=== PATIENT | male | born 1945 | race Caucasian/White ===

== ENCOUNTER 2016-02-26 14:00 | Emergency (ER) | payer OTHER ==
[~2016-02-26] VITALS: Ht 175.3 cm; Wt 79.4 kg
[~2016-02-26 14:00] MED LIST: ATORVASTATIN CA10 MG PO; COZAAR 50MG TAB50 MG PO; ESGIC PO; IMITREX50 MG PO; LEVOTHYROXINE0.05 MG PO; TAMSULOSIN HYD0.4 MG PO; ZETIA10 MG PO
--- NOTE | 2016-02-26 15:12 | CT SCAN REPORT ---
EXAMINATION: CT HEAD WITHOUT CONTRAST CLINICAL INFORMATION: Head pain status post fall. COMPARISON: None. TECHNIQUE: Contiguous axial imaging was performed from the skull base to vertex without intravenous administration of contrast. DLP: 601 mGy-cm. FINDINGS: There is no evidence of acute intracranial hemorrhage or territorial infarction. No abnormal mass effect or midline shift is seen. Walker to white matter differentiation is well preserved. No extra-axial fluid collections are identified. The ventricles are normal in size. There is no significant abnormal attenuation within the brain parenchyma. The osseous structures and soft tissues are normal. The mastoid air cells and visualized portions of the paranasal sinuses are well aerated. IMPRESSION: No acute intracranial pathology.
--- NOTE | 2016-02-26 15:34 | ED HEAD/FACIAL INJ COMPLAINT ---
History of Present Illness General Chief Complaint: Fall Stated Complaint: FALL/HIT BACK OF HEAD Source: patient Exam Limitations: no limitations Vital Signs & Intake/Output Vital Signs & Intake/Output Vital Signs Date Time Temp Pulse Resp B/P Pulse O2 O2 Flow FiO2 Ox Delivery Rate 02/25 1543 97.4 55 16 157/96 96 Room Air 02/25 1414 97.6 58 20 142/87 97 Room Air Allergies Coded Allergies: codeine (Intermediate, MIGRAINES 02/26/16) Penicillins (Mild, RASH 02/26/16) iodine (R/T HX GRAVES DISEASE 02/26/16) Reconcile Medications Acetaminophen/Butalbital/Caf (Esgic 325 MG-50 MG-40 MG) 1 CAP CAP 1 CAP PO PRN HEADACHE (Reported) Atorvastatin Calcium (Lipitor) 10 MG TAB 1 TAB PO DAILY CHOLESTEROL (Reported ) Ezetimibe (Zetia) 10 MG TAB 1 TAB PO DAILY CHOLESTEROL (Reported) Levothyroxine Sodium 0.05 MG TAB 0.05 MG PO DAILY AC THYROID (Reported) Losartan (Cozaar) 50 MG TAB 1 TAB PO DAILY HEART (Reported) Sumatriptan Succinate (Imitrex) 50 MG TAB 1 TAB PO AD HEADACHE (Reported) TAMSULOSIN HCL (Tamsulosin Hydrochloride) 0.4 MG CAP 1 CAP PO DAILY PROSTATE (Reported) Triage Note: TRIAGE: PT TO ER C/C PAIN TO HEAD S/P FALL LAST NIGHT. STATES "I'M IN [place] [employer] AND MY FEET JUST WENT OUT FROM UNDER ME. FELL BACKWARDS AND HEAD HIT ON ICE." -LOC. HAS TAKEN ADVIL X 2 DOSES (LAST DOSE THIS MORNING) WITH SOME RELIEF NOTED. -DIZZY, -BLURRY VISION. STATES "I FEEL JUST A LITTLE FUZZY". Triage Nurses Notes Reviewed? yes HPI: 71-year-old male here with complaints of mild headache posterior aspect after he slipped on the ice last night while curling. He states he had a flash of light really after the fall when he slipped backwards and struck the back of his head on the ice he did not lose consciousness, he said a mild head pain in that area since the fall. He denies any nausea or vomiting, no confusion no loss of memory and amnesia no coordination trouble no blood thinners no history of significant head injuries. (ABENA ARIAS,OMAR) Past History Travel History Traveled to [place] past 21 day No Medical History Any Pertinent Medical History? see below for history Neurological: BENIGN ESSENTIAL TREMORS EENT: NONE Cardiovascular: hypertension, hyperlipidemia Respiratory: NONE Gastrointestinal: diverticulitis Hepatic: NONE Renal: nephrolithiasis, bph Musculoskeletal: NONE Psychiatric: NONE Endocrine: GRAVES DISEASE Blood Disorders: NONE Cancer(s): NONE DETENTION SERGEANT/Reproductive: NONE Surgical History Surgical History: hernia repair-inguinal Psychosocial History What is your primary language Trinidadian Tobacco Use: Quit >30 days ago ETOH Use: occasional use Illicit Drug Use: marijuana Family History Hx Contributory? No (OMAR LUU) Review of Systems Review of Systems Constitutional: Reports: see HPI. EENTM: Reports: no symptoms. Respiratory: Reports: no symptoms. Cardiovascular: Reports: no symptoms. GI: Reports: no symptoms. Genitourinary: Reports: no symptoms. Musculoskeletal: Reports: no symptoms. Skin: Reports: no symptoms. Hematologic/Endocrine: Reports: no symptoms. Immunologic/Allergic: Reports: no symptoms. All Other Systems: Reviewed and Negative (OMAR LUU) Physical Exam Physical Exam General Appearance: well developed/nourished Cranial Nerves: normal hearing, normal speech, PERRL Comments: Well-developed well-nourished person in no acute distress HEENT: Normal EENT exam, extraocular motion intact, no nystagmus. Pupils equally round and reactive to light. Nose is atraumatic. External auditory canal and Tympanic membranes clear. Pharynx normal. No swelling or edema. Neck: Supple, no lymphadenopathy, normal range of motion without pain or tenderness Back: Nontender, no CVA tenderness. Full range of motion Respiratory: No respiratory distress Extremities: No edema, full range of motion Neuro: Alert and oriented x3, cranial nerves II through XII grossly intact, coordination intact, gait is normal Psych: Mood affect normal, normal memory normal judgment. Skin: Warm and dry, no rash on exposed skin (OMAR LUU) Progress Differential Diagnosis: corneal abrasion, c-spine injury, facial fracture, globe injury, ICH, orbit fracture, skull fracture Plan of Care: CT scan unremarkable, patient is largely asymptomatic, no confusion no vomiting no severe headaches. He'll return with any concerning symptoms of such. Diagnostic Imaging: Viewed by Me: CT Scan. Discussed w/RAD: CT Scan. Radiology Impression: PATIENT: LIOR CARMEN PRESENT AGE: 71 PATIENT ACCOUNT NO: [id number] : 45 LOCATION: [facility] ORDERING PHYSICIAN: KELLI JEAN MD SERVICE DATE: 02/26/16 EXAM TYPE: CAT - CT HEAD WO IV CONTRAST EXAMINATION: CT HEAD WITHOUT CONTRAST CLINICAL INFORMATION: Head pain status post fall. COMPARISON: None. TECHNIQUE: Contiguous axial imaging was performed from the skull base to vertex without intravenous administration of contrast. DLP: 601 mGy-cm. FINDINGS: There is no evidence of acute intracranial hemorrhage or territorial infarction. No abnormal mass effect or midline shift is seen. Walker to white matter differentiation is well preserved. No extra-axial fluid collections are identified. The ventricles are normal in size. There is no significant abnormal attenuation within the brain parenchyma. The osseous structures and soft tissues are normal. The mastoid air cells and visualized portions of the paranasal sinuses are well aerated. IMPRESSION: No acute intracranial pathology. DICTATED BY: NUNO BRIDGES MD DATE /TIME DICTATED:02/26/161500 [employer]OPLESO[employer] FUNCTIONAL ANALYST:DINORA DATE/TIME TRANSCRIBED: 02/26/161500 Comments: Reviewed results of CT scan with patient, he'll return with any concerns of worsening headache nausea vomiting or confusion (OMAR LUU) Departure Departure Disposition: HOME OR SELF CARE Condition: Stable Clinical Impression Primary Impression: Head injury Qualifiers: Encounter type: initial encounter Qualified Code: S09.90XA - Unspecified injury of head, initial encounter Referrals: KELLE ONTIVEROS MD (PCP/Family) Additional Instructions: Return to the emergency room if you're feeling worsening or severe headaches, nausea, vomiting, confusion. You may take Tylenol for pain. Follow-up with your doctor if you're not feeling any better in the next 3-5 days. Departure Forms: Customer Survey General Discharge Information (OMAR LUU) PA/CONVENTIONAL MACHINIST Co-Sign Statement Statement: ED Attending supervision documentation- [x] I saw and evaluated the patient. I have also reviewed all the pertinent lab results and diagnostic results. I agree with the findings and the plan of care as documented in the PA's/CONVENTIONAL MACHINIST's documentation. [] I have reviewed the ED Record and agree with the PA's/CONVENTIONAL MACHINIST's documentation. [] Additions or exceptions (if any) to the PAs/CONVENTIONAL MACHINIST's note and plan are summarized below: [] (MIRANDA LEONE,KELLI Leigh)
[2016-02-26 15:43] VITALS: BP 157/96
== END 2016-02-26 15:44 ==
LOC: ERH 14:00
DX: S09.90XA Unspecified injury of head, initial encounter (principal); W00.0XXA Fall on same level due to ice and snow, initial encounter